=== PATIENT | male | born 1985 | race Caucasian/White ===

== ENCOUNTER 2022-12-19 06:18 | Outpatient (CLI) | payer OTHER ==
--- NOTE | 2022-12-19 18:18 | MRI Report ---
PROCEDURE: CERVICAL SPINE WO INDICATIONS: PAIN IN RIGHT SHOULDER TECHNIQUE: Noncontrast sagittal T1 spin echo and T2 fast spin echo, sagittal STIR, foraminal oblique sagittal T2 fast spin echo, and axial gradient echo or T2 fast spin echo through the cervical spine. COMPARISON: None. FINDINGS: Image quality: Partially degraded by motion artifact. Alignment and Curvature: There is normal bony alignment. Bone Marrow: Marrow demonstrates normal overall signal. Mild reactive signal within the endplates a djacent to the C6-C7 intervertebral disc. Spinal Cord: Visualized spinal cord has normal size and signal. No cerebellar tonsillar herniation. Paraspinous Soft Tissues: No paravertebral masses. Prevertebral soft tissues are normal in thicknes s. C2-C3: Normal in appearance. C3-C4: Mild disc desiccation. Mild facet and uncovertebral hypertrophy. No significant canal stenos is. Mild bilateral foraminal stenosis. C4-C5: Mild facet and uncovertebral hypertrophy. No significant canal stenosis. Mild bilateral arnaldo inal stenosis. C5-C6: Mild diffuse disc bulge. Mild facet and uncovertebral hypertrophy. Mild canal stenosis. Mild bilateral foraminal stenosis C6-C7: Mild disc height loss and desiccation. Mild diffuse disc bulge. Mild facet and uncovertebral hypertrophy bilaterally. Mild canal stenosis. Moderate to severe bilateral foraminal stenosis with mi ld bilateral C7 nerve root compression. C7-T1: Normal in appearance. IMPRESSION: 1. Multilevel degenerative disc and facet disease, as well as uncovertebral hypertrophy. 2. Mild multilevel canal stenoses. 3. Multilevel foraminal stenoses, worst at C6-C7 where there is associated intraforaminal nerve root compression. Recommend correlation with clinical symptoms to ascertain relevance of these findings. Reviewed by: Sania Inman MD on 12/19/2022 5:16 PM PEDRO Approved by: Sania Inman MD on 12/19/2022 5:16 PM PEDRO Station ID: [id number]
== END 2022-12-19 06:19 | disposition home or self-care (01) ==
LOC: DI 06:18
DX: M47.22 Other spondylosis with radiculopathy, cervical region (principal); M48.02 Spinal stenosis, cervical region; M50.11 Cervical disc disorder with radiculopathy, high cervical region

== ENCOUNTER 2023-02-10 14:05 | Emergency (ER) | payer OTHER ==
[2023-02-10 14:21] VITALS: BP 118/76
--- OUTSIDE RECORDS SUMMARY | 2023-02-10 14:36 | EXTERNAL MEDICAL SUMMARY RPT | Continuity of Care Document ---
Author Name Unknown Address [address] [place] [address] Phone Organization [facility] Address [address] [place] [id number] Phone Problems date description facility 2023-01-10 03:50 Pain in right shoulder [facility] 2023-01-10 15:48 Pain in right shoulder [facility] Results/Labs test date facility value unit notes
--- NOTE | 2023-02-10 15:15 | XRAY Report ---
PROCEDURE: Ankle 3 View LT INDICATIONS: Trauma TECHNIQUE: 3 views of the ankle were acquired. COMPARISON: None. FINDINGS: Bones: No acute fractures or dislocations. Ankle mortise is normally aligned. No suspicious bony l esions. Soft tissues: Small anterior tibiotalar joint effusion. Achilles tendon appears normal. Moderate l ateral malleolus soft tissue swelling. IMPRESSION: Moderate lateral malleolar soft tissue swelling without underlying fracture or dislocation. If there is persistent clinical concern for a radiographically occult fracture, recommend immobilizat ion and repeat imaging in 10 to 14 days. Reviewed by: Deuce Simmons MD on 02/10/2023 2:14 PM PEDRO Approved by: Deuce Simmons MD on 02/10/2023 2:14 PM AKDT Station ID: [id number]
--- NOTE | 2023-02-10 16:13 | ED Physician Documentation ---
History of Present Illness - Stated complaint Stated Complaint: LT ANKLE INJ - Chief complaint Chief Complaint: Trauma Ext - Additonal information Additional information: 37-year-old male presents emergency department for evaluation of acute left ankle pain. He rolled his ankle when descending the last stair at his home. Did not strike his head or lose consciousness. Denies pain elsewhere. Has difficulty bearing weight. Review of Systems Constitutional: denies: Fever Musculoskeletal: reports: Joint pain, Joint swelling PD PAST MEDICAL HISTORY - Present Medications Home Medications: Ambulatory Orders Medication Instructions Recorded Confirmed oxyCODONE [Roxicodone] 5 mg PO BID #8 tablet 02/10/23 - Allergies Allergies/Adverse Reactions: Allergies Allergy/AdvReac Type Severity Reaction Status Date / Time No Known Drug Allergies Allergy Verified 02/10/23 14:12 PD ED PE EXPANDED - General General: Alert, In Pain - Extremities Extremities: Left ankle (Moderate swelling and ecchymosis of the left lateral malleolus. Full active and passive range of motion of the ankle joint though painful to bear weight. Neurovascularly intact. 2+ DP pulse. No pain at the base of the fifth metatarsal) Results - Vitals Vitals: Vital Signs - 24 hr 02/10/23 14:12 Temperature 36.5 C Heart Rate 62 Respiratory 62 H Rate Blood Pressure 118/76 O2 Saturation 99 Oxygen O2 Source Room air - Rads (name of study) left ankle Relevant Findings:: Final report received (No acute fracture or osseous lesion or dislocation. Moderate swelling at the left malleolus laterally) PD Medical Decision Making - ED course Complexity details: d/w patient ED course: Here with a left rolled ankle moderate swelling and some mild ecchymosis at the lateral malleolus. Difficulty bearing weight. X-ray is interpreted by the radiologist as negative. Clinically I suspect moderate to severe's brain over occult fracture. Placed in an air gel splint given crutches. Discussed routine conservative care as well as the usual emergent return precautions. Recommend Tylenol and ibuprofen for discomfort. Limited prescription of narcotic is being levied I am prescribing a short course of short-acting opioid pain medication for this patient. 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 I have discussed that the opioids are for short term therapy only, and will not be refilled from the ED. Departure - Departure Disposition: Home, Self Care Clinical Impression: Moderate left ankle sprain Qualifiers: Encounter type: initial encounter Qualified Code(s): S93.402A - Sprain of unspecified ligament of left ankle, initial encounter Condition: Stable Record reviewed to determine appropriate education?: Yes Instructions: ED Sprain Ankle Prescriptions: oxyCODONE [Roxicodone] 5 mg PO BID #8 tablet Comments: The x-ray of your left ankle does not show an obvious fracture. Your exam right now is consistent with a severe ankle sprain. In general I recommend that you wear the splint when out of bed for about the next week. Use crutches to help you get around. I would take 600 mg of ibuprofen with food 3 times a day or alternate with 500 mg of Tylenol which can also be taken 3 times a day. In general most ankle sprains will begin to feel better after 1 to 2 weeks. If your ability to bear weight and walk on the ankle is not markedly better than that time then you may need to be seen again for repeat imaging or have your primary care doctor make referral to physical therapy or orthopedics. I am prescribing a short course of narcotic pain medication for you. These are potentially dangerous and addictive medications that should be used carefully. These medications may constipate you. Take an itki-vur-rioygva stool softener (docusate) twice daily with plenty of water while taking these medications. If you go 24 hours without a bowel movement, take mjpv-ran-hvjwvhf miralax, per pac juan instructions. Do not drink or drive while taking these medications. If you received narcotic or sedating medications while in the emergency department, do not drive for 24 hours. Store this medication in a safe, secure place and out of reach of children. It is a violation of federal law to give or sell this medication to another person or to use in a manner other than prescribed. The ED will not refill narcotic prescriptions, including prescriptions lost or stolen. To dispose of unwanted medications: 1. [facility] at [address] in [place] has a medication drop box. They accept prescription medications (in pill form) Sunday through Sunday 9:00 a.m. to 5:00 p.m. 2. [facility] [employer] accepts prescription medications (in pill form only) for disposal year round. Call for more information. 3. Contact the [facility] for the next [facility] sponsored prescription drug collection event. , [phone], or [phone]; Note that many narcotic pain relievers also contain Tylenol/acetaminophen. Please ensure that your total dose of acetaminophen from all sources does not exceed 3 g (3000 mg) per day.
[2023-02-10] MEDS: oxyCODONE 5 MG TABLET PO STA (16:24)
== END 2023-02-10 16:33 | disposition home or self-care (01) ==
LOC: ED 14:05
DX: S93.402A Sprain of unspecified ligament of left ankle, initial encounter (principal); X50.1XXA Overexertion from prolonged static or awkward postures, initial encounter; Y93.01 Activity, walking, marching and hiking
CPT/HCPCS: 73610; 99283; A9270